=== PATIENT | male | born 1950 | race Two or more races ===

== ENCOUNTER 2016-05-25 09:15 | Inpatient (IN) | payer BC ==
[~2016-05-25] VITALS: Ht 180.3 cm; Wt 88.3 kg
[~2016-05-25 09:15] MED LIST: ASPI81CH43 PO; ATOR20TA50 PO; MET25T PO; PRAS10TA6 PO
[2016-05-25] MEDS ORDERED: SODIUM CHLORIDE 0.9% 1,000 ML IV ONE (09:44)
[2016-05-25] MEDS ORDERED: ONDANSETRON HCL 4 MG/2 ML VIAL IV ONE (09:45)
[2016-05-25] MEDS ORDERED: MORPHINE SULFATE 4 MG/ML SYRG IV ONE (09:45)
[2016-05-25] MEDS ORDERED: LORazepam 2MG/ML-1ML VIAL IV ONE (09:45)
[2016-05-25] MEDS ORDERED: NITROGLYCERIN 0.4 MG SL TAB SL ONE (10:00)
[2016-05-25 10:23] LABS: Basophils # (auto) 0 uL; Basophils % (auto) 0.3 % (0.0-2.0); Eosinophils # (auto) 0 uL; Eosinophils % (auto) 0.5 % (0.0-7.0); Hematocrit 44.9 % (41.0-53.0); Hemoglobin 15.4 g/dL (13.5-17.5); Lymphocytes # (auto) 1.3 uL; Lymphocytes % (auto) 12.6 % (10.0-50.0); Mean Corpuscular Hemoglobin 31.8 pg (28.0-32.0); Mean Corpuscular Hgb Conc. 34.2 g/dL (32.0-36.0); Mean Corpuscular Volume 92.8 fL (80.0-100.0); Mean Platelet Volume 8.3 fL (7.4-10.4); Monocytes # (auto) 0.6 uL; Monocytes % (auto) 5.7 % (0.0-12.0); Neutrophils # (auto) 8.4 uL; Neutrophils % (auto) 80.9 % (37.0-80.0); Platelet Count (auto) 179 10^3/uL (140-450); Red Cell Distribution Width 12.9 % (11.6-16.0); White Blood Cell 10.4 10^3/uL (4.4-10.8)
[2016-05-25 10:40] LABS: Albumin 3.8 g/dL (3.4-5.0); Alkaline Phosphatase 71 U/L (45-117); Anion Gap 13 (5-15); Aspartate Aminotransferase 34 U/L (15-37); BUN/Creatinine Ratio 7.9; Bilirubin, Total 0.5 mg/dL (0.2-1.0); Blood Urea Nitrogen 9 mg/dL (7-18); Calcium 8.8 mg/dL (8.5-10.1); Carbon Dioxide 23 mmol/L (21-32); Chloride 106 mmol/L (98-107); GFR African American 83 mL/min; GFR Non-African American 68 mL/min; Glucose 185 mg/dL (74-106); Potassium 4.1 mmol/L (3.5-5.1); Sodium 142 mmol/L (136-145); Total Protein 6.9 g/dL (6.4-8.2)
[2016-05-25 10:43] LABS: B-Type Natriuretic Peptide 68.82 pg/mL (0-100)
[2016-05-25 10:54] LABS: INR 1.11 (0.9-1.15); Partial Thromboplastin Time 25.7 sec (22.64-33.71); Prothrombin Time 11.4 sec (9.37-12.3)
[2016-05-25 10:59] LABS: Temperature: 21.5 C (20.0-25.0)
[2016-05-25] MEDS ORDERED: ALUM & MAG HYDROX-SIMETH LIQ(MAALOX) 30 ML PO PRN (12:45)
[2016-05-25] MEDS ORDERED: ONDANSETRON HCL 4 MG/2 ML VIAL IV PRN (12:45)
[2016-05-25] MEDS ORDERED: LORazepam 0.5 MG TAB PO PRN (12:45)
[2016-05-25] MEDS ORDERED: NITROGLYCERIN 0.4 MG SL TAB SL PRN ×2 (12:45)
[2016-05-25] MEDS ORDERED: DEXTROSE (50%) 50ML SYRG IV PRN (12:45)
[2016-05-25] MEDS ORDERED: ZOLPIDEM TARTRATE 5 MG TAB PO PRN (12:45)
[2016-05-25] MEDS ORDERED: MORPHINE SULF INJ 2 MG/ML SYRINGE 1ML IV PRN ×2 (12:45)
[2016-05-25] MEDS ORDERED: ACETAMINOPHEN 325 MG TAB PO PRN (12:45)
[2016-05-25] MEDS: SODIUM CHLOR 0.9% PF (SALINE LOCK) 10ML VIAL IV SCH ×2 (13:35→21:44)
[2016-05-25 13:47] LABS: Urine RBC None Seen /hpf (0 - 3)
[2016-05-25 14:11] VITALS: BP 119/79
[2016-05-25] MEDS ORDERED: DOCUSATE SOD 100 MG CAP PO ONE (14:15)
[2016-05-25] MEDS ORDERED: ENALAPRIL MALEATE 2.5 MG TAB PO ONE (14:15)
[2016-05-25] MEDS ORDERED: PRASUGREL HCL 10 MG TAB PO ONE (14:15)
[2016-05-25] MEDS ORDERED: ASPirin 81 mg TAB PO ONE (14:15)
[2016-05-25] MEDS ORDERED: METOPROLOL TARTRATE 25 MG TAB PO ONE (14:15)
[2016-05-25 14:29] LABS: Urine Bilirubin Negative (Negative); Urine Blood Negative /uL (Negative); Urine Color Yellow (Yellow); Urine Glucose Normal (Normal); Urine Ketone Negative (Negative); Urine Nitrite Negative (Negative); Urine Squamous Epithelial Cell FEW /hpf (<5); Urine Urobilinogen Normal (Negative); Urine pH 5.5 (5.0-8.0)
[2016-05-25] MEDS: InsuLIN REG 1unit/0.01ml Soln (100units/ml) SC SCH ×2 (17:00→21:45)
[2016-05-25] MEDS: ACCU-CHEK COMFORT CURVE STRIP VI SCH ×2 (17:13→21:45)
[2016-05-25 17:59] VITALS: BP 129/79
[2016-05-25] MEDS ORDERED: METO-158 PO (18:40)
[2016-05-25] MEDS: ENALAPRIL MALEATE 2.5 MG TAB PO SCH (21:44)
[2016-05-25 21:50] VITALS: BP 108/64
[2016-05-25] MEDS ORDERED: METOPROLOL TARTRATE 25 MG TAB PO SCH (22:00)
[2016-05-25] MEDS ORDERED: ATORVASTATIN 20 MG TAB PO SCH (22:00)
[2016-05-26 05:16] VITALS: BP 113/65
[2016-05-26 06:06] LABS: Basophils # (auto) 0 uL; Basophils % (auto) 0.4 % (0.0-2.0); Eosinophils # (auto) 0.1 uL; Eosinophils % (auto) 1.8 % (0.0-7.0); Hemoglobin 15.2 g/dL (13.5-17.5); Lymphocytes # (auto) 2.1 uL; Lymphocytes % (auto) 29.5 % (10.0-50.0); Mean Corpuscular Hemoglobin 31.6 pg (28.0-32.0); Mean Corpuscular Hgb Conc. 33.8 g/dL (32.0-36.0); Mean Corpuscular Volume 93.3 fL (80.0-100.0); Mean Platelet Volume 8.5 fL (7.4-10.4); Monocytes # (auto) 0.5 uL; Monocytes % (auto) 7.5 % (0.0-12.0); Neutrophils # (auto) 4.4 uL; Neutrophils % (auto) 60.8 % (37.0-80.0); Platelet Count (auto) 183 10^3/uL (140-450); Red Cell Distribution Width 12.8 % (11.6-16.0); White Blood Cell 7.3 10^3/uL (4.4-10.8)
[2016-05-26] MEDS: ACCU-CHEK COMFORT CURVE STRIP VI SCH ×2 (06:13→11:53)
[2016-05-26] MEDS: InsuLIN REG 1unit/0.01ml Soln (100units/ml) SC SCH ×2 (06:13→11:30)
[2016-05-26] MEDS: SODIUM CHLOR 0.9% PF (SALINE LOCK) 10ML VIAL IV SCH ×2 (06:13→13:42)
[2016-05-26 06:42] LABS: Albumin 3.6 g/dL (3.4-5.0); Alkaline Phosphatase 65 U/L (45-117); Anion Gap 11 (5-15); Aspartate Aminotransferase 33 U/L (15-37); BUN/Creatinine Ratio 9.6; Bilirubin, Total 0.6 mg/dL (0.2-1.0); Blood Urea Nitrogen 10 mg/dL (7-18); Calcium 8.8 mg/dL (8.5-10.1); Carbon Dioxide 25 mmol/L (21-32); Chloride 107 mmol/L (98-107); Cholesterol 119 mg/dL (<200); GFR African American 92 mL/min; GFR Non-African American 76 mL/min; Glucose 100 mg/dL (74-106); HDL Cholesterol 30 mg/dL (40-59); LDL Cholesterol 72 mg/dL (<100); Magnesium 2.3 mg/dL (1.6-2.6); Potassium 4.4 mmol/L (3.5-5.1); Sodium 143 mmol/L (136-145); Total Protein 6.6 g/dL (6.4-8.2); Triglycerides 182 mg/dL (<150)
[2016-05-26 08:51] VITALS: BP 123/72
[2016-05-26] MEDS: ENALAPRIL MALEATE 2.5 MG TAB PO SCH (09:54)
[2016-05-26] MEDS ORDERED: CLOPIDOGREL BISULFATE 75 MG TAB PO SCH (10:00)
[2016-05-26] MEDS ORDERED: DOCUSATE SOD 100 MG CAP PO SCH (10:00)
[2016-05-26] MEDS ORDERED: PRASUGREL HCL 10 MG TAB PO SCH (10:00)
[2016-05-26] MEDS ORDERED: ASPirin 81 mg TAB PO SCH (10:00)
[2016-05-26] MEDS ORDERED: METOPROLOL SUCCINATE XL 50 MG TAB PO SCH (10:00)
[2016-05-26 13:00] VITALS: BP 99/72
[2016-05-26] MEDS ORDERED: ALPR0.5T PO (14:55)
== END 2016-05-26 16:45 | disposition home or self-care (01) | DRG 310 ==
LOC: EDBD 09:15 → ER 09:19 → TELE 09:20 → TELE-E-ADS 14:00 → TELE-CENTR 15:16
PROVIDERS: ADMIT Internal Medicine; ATTEND Nurse Practitioner Acute Care
DX: R00.2 Palpitations (principal); R55 Syncope and collapse; I25.10 Atherosclerotic heart disease of native coronary artery without angina pectoris; N18.2 Chronic kidney disease, stage 2 (mild); E11.21 Type 2 diabetes mellitus with diabetic nephropathy; I25.2 Old myocardial infarction; Z95.5 Presence of coronary angioplasty implant and graft; Z90.49 Acquired absence of other specified parts of digestive tract; Z82.49 Family history of ischemic heart disease and other diseases of the circulatory system
CPT/HCPCS: 36415; 71010; 80053; 80061; 81001; 82962; 83036; 83735; 83880; 84484; 85025; 85610; 85730; 87081; 87086; 93005; 93306; 96372; 96374; 96375; 96376; J2405

== ENCOUNTER 2016-09-04 17:11 | Emergency (ER) | payer BC ==
[~2016-09-04] VITALS: Ht 177.8 cm; Wt 81.6 kg
[~2016-09-04 17:11] MED LIST changes: +ALPR0.5T PO; -MET25T PO; +METO-158 PO
[2016-09-04 19:39] LABS: Basophils # (auto) 0 uL; Basophils % (auto) 0.3 % (0.0-2.0); Eosinophils # (auto) 0 uL; Eosinophils % (auto) 0.4 % (0.0-7.0); Lymphocytes % (auto) 9.9 % (10.0-50.0); Mean Corpuscular Hgb Conc. 34.8 g/dL (32.0-36.0); Mean Platelet Volume 8.4 fL (7.4-10.4); Monocytes # (auto) 0.5 uL; Monocytes % (auto) 5.2 % (0.0-12.0); Neutrophils # (auto) 8.4 uL; Neutrophils % (auto) 84.2 % (37.0-80.0); Platelet Count (auto) 203 10^3/uL (140-450); Red Cell Distribution Width 13.6 % (11.6-16.0)
[2016-09-04 19:55] LABS: Albumin 4.1 g/dL (3.4-5.0); Anion Gap 12 (5-15); Aspartate Aminotransferase 23 U/L (15-37); BUN/Creatinine Ratio 13.6; Blood Urea Nitrogen 15 mg/dL (7-18); Calcium 9.2 mg/dL (8.5-10.1); Carbon Dioxide 22 mmol/L (21-32); Chloride 107 mmol/L (98-107); GFR African American 86 mL/min; GFR Non-African American 71 mL/min; Glucose 119 mg/dL (74-106); Potassium 3.8 mmol/L (3.5-5.1); Sodium 141 mmol/L (136-145)
[2016-09-04 20:03] LABS: Alkaline Phosphatase 83 U/L (45-117); Bilirubin, Total 0.5 mg/dL (0.2-1.0); Total Protein 7.4 g/dL (6.4-8.2)
[2016-09-04] MEDS ORDERED: MORPHINE SULFATE 4 MG/ML SYRG ONE (20:35)
[2016-09-04] MEDS ORDERED: ONDANSETRON HCL 4 MG/2 ML VIAL ONE (20:36)
[2016-09-04] MEDS ORDERED: ONDANSETRON HCL 4 MG/2 ML VIAL IV ONE (20:45)
[2016-09-04] MEDS ORDERED: MORPHINE SULFATE 4 MG/ML SYRG IV ONE (20:45)
[2016-09-04 21:23] LABS: INR 0.98 (0.9-1.15); Partial Thromboplastin Time 26.1 sec (22.64-33.71); Prothrombin Time 10.7 sec (9.37-12.3)
[2016-09-04 21:24] LABS: B-Type Natriuretic Peptide 37.64 pg/mL (0-100)
[2016-09-04 21:28] LABS: Temperature: 22.7 C (20.0-25.0)
[2016-09-05 01:10] LABS: Urine Bilirubin Negative (Negative); Urine Blood Negative /uL (Negative); Urine Color Colorless (Yellow); Urine Glucose Normal (Normal); Urine Ketone Negative (Negative); Urine Nitrite Negative (Negative); Urine RBC <1 /hpf (0 - 3); Urine Urobilinogen Normal (Negative); Urine pH 5.5 (5.0-8.0)
[2016-09-05] MEDS ORDERED: FAMOTIDINE (10MG/ML) 2ML VL IV ONE (01:30)
[2016-09-05] MEDS ORDERED: ALUM & MAG HYDROX-SIMETH LIQ(MAALOX) 30 ML PO ONE (01:30)
[2016-09-05] MEDS ORDERED: DONNATAL 5ml ORAL Elix (BELLADONNA ALK-PHENOBARB) PO ONE (01:30)
[2016-09-05] MEDS ORDERED: LIDOCAINE VISCOUS 2% 15ML UD PO ONE (01:30)
[2016-09-05 05:00] VITALS: BP 111/72
== END 2016-09-05 05:38 | disposition home or self-care (01) ==
LOC: ER 17:14
DX: R07.9 Chest pain, unspecified (principal); L03.116 Cellulitis of left lower limb; E11.65 Type 2 diabetes mellitus with hyperglycemia; R00.2 Palpitations; I25.2 Old myocardial infarction; I25.10 Atherosclerotic heart disease of native coronary artery without angina pectoris; I10 Essential (primary) hypertension; Z79.82 Long term (current) use of aspirin; Z79.899 Other long term (current) drug therapy; Z90.49 Acquired absence of other specified parts of digestive tract; N28.9 Disorder of kidney and ureter, unspecified
CPT/HCPCS: 36415; 71010; 80053; 81001; 83735; 83880; 84484; 85025; 85610; 85730; 93005; 96374; 96375; 99285; J2270; J2405; J3490

== ENCOUNTER 2019-11-25 23:27 | Emergency (ER) | payer BC ==
[~2019-11-25] VITALS: Ht 180.3 cm; Wt 86.2 kg
[2019-11-26 01:25] LABS: Basophils # (auto) 0 10 ^3/uL (0-0.2); Basophils % (auto) 0.2 % (0.0-2.0); Eosinophils # (auto) 0 10 ^3/uL (0-0.8); Eosinophils % (auto) 0.1 % (0.0-7.0); Hematocrit 43.9 % (41.0-53.0); Hemoglobin 15.2 g/dL (13.5-17.5); Lymphocytes % (auto) 12.4 % (10.0-50.0); Mean Corpuscular Hemoglobin 32.7 pg (28.0-32.0); Mean Corpuscular Hgb Conc. 34.6 g/dL (32.0-36.0); Mean Corpuscular Volume 94.5 fL (80.0-100.0); Monocytes # (auto) 0.5 10 ^3/uL (0-1.3); Monocytes % (auto) 6.3 % (0.0-12.0); Neutrophils # (auto) 6.9 10 ^3/uL (1.6-8.6); Nucleated Red Blood Cells % 0.1 %; Platelet Count (auto) 170 10^3/uL (140-450); Red Blood Cells 4.65 10^6/uL (4.5-5.90); Red Cell Distribution Width 12.7 % (11.8-14.3); White Blood Cell 8.5 10^3/uL (4.4-10.8)
[2019-11-26 01:46] LABS: Albumin 4.1 g/dL (3.4-5.0); BUN/Creatinine Ratio 13.1; Calcium 8.8 mg/dL (8.5-10.1); Potassium 4.3 mmol/L (3.5-5.1)
[2019-11-26 01:49] LABS: Bilirubin, Total 0.8 mg/dL (0.2-1.0); Total Protein 7.3 g/dL (6.4-8.2)
[2019-11-26] MEDS ORDERED: ONDANSETRON HCL 4 MG/2 ML VIAL IV ONE (03:00)
[2019-11-26] MEDS ORDERED: SODIUM CHLORIDE 0.9% 1,000 ML IV ONE (03:00)
[2019-11-26] MEDS ORDERED: IOHEXOL 300 MG/ML 100ML BOTTLE IJ ONE (03:07)
[2019-11-26 04:30] VITALS: BP 139/84
== END 2019-11-26 06:19 | disposition home or self-care (01) ==
LOC: ER 23:27 → EDBD 23:27 → ER 11-26 06:19
DX: K21.9 Gastro-esophageal reflux disease without esophagitis (principal); R10.13 Epigastric pain; I25.2 Old myocardial infarction; Z86.73 Personal history of transient ischemic attack (TIA), and cerebral infarction without residual deficits; Z85.46 Personal history of malignant neoplasm of prostate; Z90.89 Acquired absence of other organs; Z98.61 Coronary angioplasty status
CPT/HCPCS: 36415; 71045; 74177; 80053; 83690; 84484; 85025; 96361; 96374; 99285; J2405; J7030; Q9967

== ENCOUNTER 2021-12-26 04:07 | Emergency (ER) | payer BC ==
[~2021-12-26] VITALS: Ht 180.3 cm; Wt 84.0 kg
[~2021-12-26 04:07] MED LIST changes: +PRAS10TA18 PO; -PRAS10TA6 PO
[2021-12-26 05:06] LABS: Basophils # (auto) 0 10 ^3/uL (0-0.2); Basophils % (auto) 0.4 % (0.0-2.0); Eosinophils # (auto) 0.1 10 ^3/uL (0-0.8); Eosinophils % (auto) 0.7 % (0.0-7.0); Hematocrit 44.6 % (41.0-53.0); Hemoglobin 15.8 g/dL (13.5-17.5); Lymphocytes % (auto) 24.6 % (10.0-50.0); Mean Corpuscular Hemoglobin 32.4 pg (28.0-32.0); Mean Corpuscular Hgb Conc. 35.5 g/dL (32.0-36.0); Mean Corpuscular Volume 91.4 fL (80.0-100.0); Monocytes # (auto) 0.5 10 ^3/uL (0-1.3); Monocytes % (auto) 6.6 % (0.0-12.0); Neutrophils # (auto) 5.6 10 ^3/uL (1.6-8.6); Neutrophils % (auto) 67.7 % (37.0-80.0); Red Blood Cells 4.88 10^6/uL (4.5-5.90); Red Cell Distribution Width 13.3 % (11.8-14.3); White Blood Cell 8.2 10^3/uL (4.4-10.8)
[2021-12-26 05:21] LABS: Albumin 4.2 g/dL (3.4-5.0); Calcium 9.2 mg/dL (8.5-10.1); Magnesium 2.5 mg/dL (1.6-2.6); Potassium 3.8 mmol/L (3.5-5.1)
[2021-12-26 05:24] LABS: BUN/Creatinine Ratio 14.2; Bilirubin, Total 0.8 mg/dL (0.2-1.0); Total Protein 7.1 g/dL (6.4-8.2)
[2021-12-26] MEDS ORDERED: LIDOCAINE VISCOUS 2% 15ML UD PO ONE (07:15)
[2021-12-26] MEDS ORDERED: dilTIAZem HCL 60 MG TAB PO ONE (07:15)
[2021-12-26] MEDS ORDERED: ASPirin 325 MG TAB PO ONE (07:15)
[2021-12-26] MEDS ORDERED: ALUM & MAG HYDROX-SIMETH LIQ(MAALOX) 30 ML PO ONE (07:15)
[2021-12-26] MEDS ORDERED: DONNATAL 5ml ORAL Elix (BELLADONNA ALK-PHENOBARB) PO ONE (07:15)
[2021-12-26 09:41] VITALS: BP 124/78
== END 2021-12-26 09:42 | disposition home or self-care (01) ==
LOC: ER 04:07
DX: R07.89 Other chest pain (principal); I10 Essential (primary) hypertension; I25.2 Old myocardial infarction
CPT/HCPCS: 36415; 71045; 80053; 83735; 83880; 84484; 85025; 93005